=== PATIENT | female | born 1970 ===

== ENCOUNTER 2017-09-03 07:44 | Day surgery (SDC) | payer BC ==
--- NOTE | 2017-09-03 08:29 | Short Stay Summary ---
Short Stay Documentation Date of service: 09/03/17 Narrative H&P: Patient here for surgical removal of a calcified labial mass. An attempt was made to remove in the office but due to the nature of the mass, it was unable to be successfully completee. - History Past Medical History: diabetes, hypertension, other (morbid obesity) Past Surgical History: No surgical history Social history: single - Allergies and Medications Current Medications: Allergies No Known Allergies Allergy (Unverified 09/02/17 10:35) Home Medications Medication Instructions Recorded Confirmed Last Taken Type Amlodipine Besylate/Benazepril 1 each PO QDAY 09/02/17 09/02/17 Unknown History [Lotrel 5-10 mg] Hydrochlorothiazide 12.5 mg PO DAILY 09/02/17 09/02/17 Unknown History metFORMIN [Glucophage] 500 mg PO BID 09/02/17 09/02/17 Unknown History - Physical exam General appearance: no acute distress, obese Integumentary: no rash Lungs: Clear to auscultation, Normal air movement Breasts: deferred Heart: Regular rate, Normal S1, Normal S2 Gastrointestinal: normal, normoactive bowel sounds, obese Female Genitourinary: lesions (large solid right labial mass) Rectal Exam: deferred Extremities: No edema - Brief post op/procedure progress note Date of procedure: 09/03/17 Pre-op diagnosis: Large mass of the right labia Post-op diagnosis: same Procedure: Excision of right labial mass Anesthesia: MAC Findings: Large oval shaped right labial mass Surgeon: PAOLA WEBER Estimated blood loss: other (150) Pathology: list (labial mass with attached skin) Specimen disposition: to lab Condition: stable - Hospital course Hospital course: unremarkable - Disposition Condition at discharge: Good Disposition: DC-01 TO HOME OR SELFCARE Short Stay Discharge Plan Activity: advance as tolerated Weight Bearing Status: Weight Bear as Tolerated Diet: regular Wound: keep clean and dry, other (no tub baths. Use blank bottle for cleaning.) Follow up with: PAOLA WEBER MD [Primary Care Provider] - 14 Days Prescriptions: HYDROcodone/APAP 7.5-325 [[place] 7.5/325] 1 each PO Q6HR PRN #30 tablet PRN Reason: Pain Ibuprofen [Motrin] 800 mg PO Q8HR PRN #40 tablet PRN Reason: Pain
[2017-09-03] MEDS ORDERED: NACL BACTERIOSTATIC INFILTRATI ONE (09:11)
[2017-09-03 09:44] LABS: BUN/Creatinine Ratio 14; Blood Urea Nitrogen 11 mg/dL (7-17); Calcium 9.1 mg/dL (8.4-10.2); Hemolysis Index 43
--- NOTE | 2017-09-03 09:49 | Anesthesia Consultation ---
Anesthesia Consult and Med Hx Date of service: 09/03/17 - Airway Anesthetic Teeth Evaluation: Good Mallampati Class: Class III Intubation Access Assessment: Probably Good - Pulmonary Exam CTA: Yes - Cardiac Exam Cardiac Exam: RRR - Pre-Operative Health Status ASA Pre-Surgery Classification: ASA3 Proposed Anesthetic Plan: General - Pulmonary Hx Smoking: No Hx Asthma: No Hx Respiratory Symptoms: No SOB: No COPD: No Home Oxygen Therapy: No Hx Pneumonia: No (cpap) Hx Sleep Apnea: Yes - Cardiovascular System Hx Hypertension: Yes (over 15 yrs) Hx Coronary Artery Disease: No Hx Heart Attack/AMI: No Hx Angina: No Hx Percutaneous Transluminal Coronary Angioplasty (PTCA): No Hx Cardia Arrhythmia: No Hx Pacemaker: No Hx Internal Defibrillator: No Hx Valvular Heart Disease: No Hx Heart Murmur: No Hx Peripheral Vascular Disease: No (hypertension/pre diabetic) - Central Nervous System Hx Psychiatric Problems: No - Endocrine Hx Renal Disease: No Hx End Stage Renal Disease: No Hx Cirrhosis: No Hx Liver Disease: No Hx Insulin Dependent Diabetes: No Hx Non-Insulin Dependent Diabetes: No Hx Thyroid Disease: No Hx Hypothyroidism: No Hx Hyperthyroidism: No - Hematic Hx Anemia: No Hx Sickle Cell Disease: No - Other Systems Hx Cancer: No - Additional Comments Anesthesia Medical History Comments: morbid obesity
[2017-09-03] MEDS ORDERED: ZOFRAN IV PRN (09:54)
[2017-09-03] MEDS ORDERED: LACTATED RINGERS 1,000 ML IV SCH (10:00)
[2017-09-03] MEDS ORDERED: PEPCID PO NR (10:00)
[2017-09-03] MEDS ORDERED: DIPRIVAN 10 MG/ML IV ONE (10:14)
[2017-09-03] MEDS ORDERED: XYLOCAINE MPF 2% ONE (10:16)
[2017-09-03] MEDS ORDERED: SUBLIMAZE ONE (10:17)
[2017-09-03] MEDS ORDERED: NACL 0.9% IR ONE (10:35)
[2017-09-03] MEDS ORDERED: ZOFRAN ONE (11:04)
[2017-09-03] MEDS: DILAUDID IV PRN ×2 (11:59→12:12)
--- NOTE | 2017-09-03 12:05 | Operative Report ---
Operative Report Operative Report: Preoperative diagnosis: Right sided solid labial mass Postop diagnosis: Same Procedure: Excision of right labial mass Surgeon: Serene Garcia Anesthesia: Gen. with LMA EBL: 150 mL Urine output: 100 mL Specimen: Solid mass consistent with calcified lipoma Indications: This is a 47-year-old 0 who presented to my office with complaint of a large labial mass. An attempt was made to remove the mass in the office however the mass was fixed tightly to the skin and it was unable to be accomplished in the office. The decision was then made to proceed to the OR for excision. Procedure: Patient was admitted to the OR with IV running in place. She had been properly identified as herself. She was given anesthesia without difficulty. She was then prepped and draped in a normal sterile fashion and placed in a dorsal lithotomy position. The labial mass was grasped with a tenaculum. The inferior side of the mass the skin around it was incised. It was fatty tissue posterior to the mass which was easily peeled away. Using the Bovie and the surgeon's fingers the mass was removed from the right labia. It was then handed off to pathology. Individual sutures of 2-0 Vicryl were placed in the space behind with the mass had been. This skin was then closed in a subcuticular fashion using 2-0 Vicryl. The sponge needle and instrument counts are correct 2. The patient tolerated the procedure well. There was excellent hemostasis. She was taken recovery in stable condition.
[2017-09-03 14:42] VITALS: BP 101/59
== END 2017-09-03 07:45 | disposition home or self-care (01) ==
LOC: OR 07:44
PROVIDERS: ATTEND Obstetrics & Gynecology
DX: D49.0 Neoplasm of unspecified behavior of digestive system (principal); I10 Essential (primary) hypertension; G47.30 Sleep apnea, unspecified; E66.01 Morbid (severe) obesity due to excess calories; Z79.899 Other long term (current) drug therapy; Z68.43 Body mass index [BMI] 50.0-59.9, adult
CPT/HCPCS: 11422; 36415; 80048; 82962; 88305; 88313; 88341; 88342; J1170; J2405; J2704; J3010; J7120; 88309